=== PATIENT | male | born 1960 | race Hispanic/Latino ===

== ENCOUNTER 2016-11-15 14:40 | Emergency (ER) | payer MEDICAID ==
[2016-11-15 14:40] VITALS: BMI 37.2
== END 2016-11-15 18:57 | disposition left against medical advice (07) ==
LOC: ED 14:40
DX: Z02.89 Encounter for other administrative examinations (principal); R42 Dizziness and giddiness

== ENCOUNTER 2018-09-09 10:15 | Outpatient (CLI) | payer MEDICAID | END 2018-09-09 10:16 | disposition home or self-care (01) | LOC: RAD 10:15 ==